=== PATIENT | male | born 1995 | race Caucasian/White ===

== ENCOUNTER 2018-10-28 10:08 | Emergency (ER) | payer OTHER, SELFPAY ==
[2018-10-28 10:39] VITALS: BP 127/81; PULSE 66; RESP 18; TEMP 36.4; O2SAT 100
[2018-10-28 11:45] VITALS: PULSE 70
--- NOTE | 2018-10-28 12:20 | DI.RAD.S_ITS ---
PROCEDURE: XR CHEST 2V INDICATIONS: L side chest and side sharp pain TECHNIQUE: 2 views of the chest were acquired. COMPARISON: None. FINDINGS: Surgical changes and devices: None. Lungs and pleura: Lungs are clear. No pleural effusions or pneumothorax. Mediastinum: Mediastinal contours are normal. Heart size is normal. Bones and chest wall: No suspicious bony abnormalities. Soft tissues appear unremarkable. IMPRESSION: Negative chest. No acute cardiopulmonary process is evident. Dictated by: Cl Arenas M.D. on 10/28/2018 at 11:46 Approved by: Cl Arenas M.D. on 10/28/2018 at 11:50
--- NOTE | 2018-10-28 13:16 | ED.EXTPRO ---
HPI - Extremity Problem <LISSA Gibson - Last Filed: 10/28/18 23:21> General Chief complaint: Extremity Problem,Nontraumatic Stated complaint: sharp left side pain,arm going numb Time Seen by Provider: 10/28/18 12:09 Source: patient Mode of arrival: ambulatory Limitations: no limitations History of Present Illness HPI Narrative: This is a 23-year-old active [employer] member, smoker, who presents with left chest and side sharp pain which started at 4:30 a.m. this morning when he was getting off for work which worsens with movement and touch. He also reports discomfort on left arm radiating to elbow and down to his left hand 3 through 5 fingers some tingling and numbness. 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 He denies breathing trouble, dizziness, weakness to his extremities. He reports had some nausea with this chest discomfort this morning. He was unable to seen by [employer] medical personnel today and was referred to be evaluated in the ED. He rates 1/10 pain at this time. He reports right dominant hand. Related Data Home Medications Medication Instructions Recorded Confirmed No Known Home Medications 10/28/18 10/28/18 Allergies Allergy/AdvReac Type Severity Reaction Status Date / Time No Known Drug Allergies Allergy Verified 10/28/18 10:42 Review of Systems <LISSA Gibson - Last Filed: 10/28/18 23:21> Review of Systems General: Denies fever, chills, fatigue, malaise, sweats. HEENT: Denies sinus pain, ear pain, sore throat, difficulty swallowing, dizziness. Respiratory: Denies dyspnea, cough, wheezing, hemoptysis, sputum. Cardiovascular: See HPI Gastrointestinal: Denies nausea, vomiting, abdominal pain, diarrhea, constipation, melena. : Denies dysuria, frequency, incontinence, hematuria, urinary retention. Musculoskeletal: See HPI Skin: Denies rash, skin lesions, or other. Neurologic: Reports tingling and numbness to his last 3 fingers on left hand. Denies weakness, headache, numbness, change in speech, confusion, seizures, incoordination. Psychiatric: No concerning psychosocial issues. 12-point review of systems is negative except for those stated above. PFSH <LISSA Gibson - Last Filed: 10/28/18 23:21> Medical History No significant past medical history (Chronic) Surgical History No pertinent past surgical history (Chronic) Social History Smoking Status: Current every day smoker Social History Smoking Status: Current every day smoker Exam <LISSA Gibson - Last Filed: 10/28/18 23:21> Narrative Exam Narrative: GEN: Alert, oriented x 3, well appearing and nourished, and in no acute distress. Head: Normal cephalic, atraumatic. No scalp or temporal tenderness, palpable mass or rash. EYES: Pupils are equal, round, and reactive to light and accommodation. Extraocular muscles are intact bilaterally. There is no subconjunctival hemorrhage, exudate and sclera non-icteric. ENT: Hearing grossly intact. Nose without bleeding, purulent discharge. Mucous membrane moist, no mucosal lesion. Throat without erythema, tonsillar hypertrophy or exudate. Uvula in midline, airway patent. Neck: Trachea in midline. No JVD, non-tender without lymphadenopathy. No masses or thyroid megaly. Supple, non-tender and no meningeal signs. CARDIAC: Normal regular rate and rhythm without murmurs, gallops, or rubs. No chest wall tenderness. No peripheral edema, cyanosis or pallor. Capillary refill is less than 2 seconds. RESPIRATORY: Lungs are cleat to auscultate bilaterally. No cough, wheezes, rales, or rhonchi. No stridor, respiratory distress, increase work of breathing, or accessary muscle used. ABD: Abdomen soft, nontender and non-distended. No guarding or rebound tenderness to palpate. Bowel sounds are normal in all 4 quadrants. There is no palpable masses or organomegaly. EXT: Full painless ROM of all extremities with no loss of sensation, strength, effusion or edema. Negative for Tinnel and Phalen signs in L hand. Radial and ulnar pulses intact in L hand. SKIN: Warm, dry, normal color for patient. No erythema, lesions or rash over visible areas. BACK: Nontender without deformity or crepitance. No flank tenderness. NEUROLOGICAL: Alert and oriented to place, time and person. Sensation and motor function intact bilaterally. No facial droops, dysphasia. PSYCHIATRIC: Good judgement and reason, without hallucinations, abnormal affect or abnormal behaviors during the examination. Patient is not suicidal. Initial Vital Signs Initial Vital Signs: Vital Signs Temperature 97.6 F 10/28/18 10:39 Pulse Rate 66 10/28/18 10:39 Respiratory Rate 18 10/28/18 10:39 Blood Pressure 127/81 10/28/18 10:39 Pulse Oximetry 100 10/28/18 10:39 <Kim Escobar DO - Last Filed: 10/29/18 08:15> Initial Vital Signs Initial Vital Signs: Vital Signs Temperature 97.6 F 10/28/18 10:39 Pulse Rate 66 10/28/18 10:39 Respiratory Rate 18 10/28/18 10:39 Blood Pressure 127/81 10/28/18 10:39 Pulse Oximetry 100 10/28/18 10:39 Course <LISSA Gibson - Last Filed: 10/28/18 23:21> Orders Ordered: ED Orders 10/28/18 12:20 XR chest 2V Stat EKG-12 Lead Stat Vital Signs - 8 hr 10/28/18 10:39 10/28/18 11:45 Temperature 97.6 F Pulse Rate 66 Pulse Rate [Left Radial] 70 Respiratory Rate 18 Blood Pressure 127/81 Pulse Oximetry 100 <Kim Escobar DO - Last Filed: 10/29/18 08:15> Orders Ordered: ED Orders 10/28/18 12:20 XR chest 2V Stat EKG-12 Lead Stat Vital Signs - 8 hr 10/28/18 10:39 10/28/18 11:45 Temperature 97.6 F Pulse Rate 66 Pulse Rate [Left Radial] 70 Respiratory Rate 18 Blood Pressure 127/81 Pulse Oximetry 100 MDM - Extremity (Nontraumatic) <LISSA Gibson Last Filed: 10/28/18 23:21> Differential Diagnosis Likely other (chostochondritis, pneumothorax, pneumonia, [place]) Medical Records Attestation: I reviewed the patient's medical records. Imaging Data Chest x-ray: Radiologist's impression: [place] [id number] XRay Report Signed Patient: Isaac Merritt EMR#: [id number] : 1995Acct:[id number] Age/Sex: MDate of Service: 10/28/18 Loc: ED Accession Number: [id number] Procedure: XR chest 2V Ordering Provider: Ronnie Rg PROCEDURE: XR CHEST 2V INDICATIONS: L side chest and side sharp pain TECHNIQUE: 2 views of the chest were acquired. COMPARISON: None. FINDINGS: Surgical changes and devices: None. Lungs and pleura: Lungs are clear. No pleural effusions or pneumothorax. Mediastinum: Mediastinal contours are normal. Heart size is normal. Bones and chest wall: No suspicious bony abnormalities. Soft tissues appear unremarkable. IMPRESSION: Negative chest. No acute cardiopulmonary process is evident. Dictated by: Cl Arenas M.D. on 10/28/2018 at 11:46 Approved by: Cl Arenas M.D. on 10/28/2018 at 11:50 ECG Data Attestation EKG: I personally reviewed and interpreted this ECG as follows: Prior ECG tracings: not available for review Interpretation: Sinus rhythm rate at 65, normal axis, no ST elevation or depression. MDM Narrative Medical decision making narrative: This is a 23-year-old male who presents to ED with left chest and side sharp pain which is reproducible by palpation and left arm discomfort which is radiating to elbow and his left last 3 fingers with tingling and numbness. Patient does not endorse any other associated symptoms such as breathing difficulty and dizziness. Patient is a smoker but does not use other drugs. Patient reports his pain is 1/10 at this time and declines any medications. EKG was done it shows as sinus rhythm. Chest x-ray with negative acute findings. Patient advised to take pqwi-zbz-dbmellc ibuprofen/Motrin as needed for pain and for possible inflammation for his chest and left arm discomfort. Negative exam for Tinel/Phalen tests for carpal tunnel symptoms. Nikita wrap has provided around his mid arm to prevent repetition of left arm movement and limit using the left hand excessively. Discussed return precautions with patient and patient advised to follow up with his medical sick call. Patient agrees with treatment plan and no further questions expressed the this time. <Kim Escobar, DO - Last Filed: 10/29/18 08:15> ECG Data Attestation EKG: I personally reviewed and interpreted this ECG as follows: Prior ECG tracings: not available for review Interpretation: Normal sinus rhythm rate 65 p.r. interval [address] changes no T-wave inversions Discharge Plan Departure Patient Disposition: Home Clinical Impression: Costochondritis, Arm pain, left Discharge Date/Time: 10/28/18 13:47 Interventions: ED Discharge Assessment Last Done: 10/28/18 13:47 Instructions: DI for Costochondritis, DI for Arm Pain Activity Restrictions/Additional Instructions: You have been diagnosed with [ costochondritis and L arm pain which probably caused from ulnar nerve irritation. Plese use nikita wrap that was provided today to prevent excessive movement on left arm. The EKG and chest x-ray was unremarkable]. What to do: *Take your medications as directed. Please take hdxz-uct-qilznup ibuprofen or Motrin as needed for discomfort which will also decrease inflammation on your chest wall and you're left arm. Please take it with food or snack when you take this medication *Follow up with your primary care provider in 2-3 days, call for an appointment. Let them know you were seen in the ED and that we asked you to be seen in follow up. *Return to ED if you have any new, worsening, or concerning symptoms, such as [severe chest pain, difficulty breathing, dizziness, nausea or vomiting, weakness to her left arm and any acute concerns, ]. Prescriptions: No Action No Known Home Medications RF: 0 Referrals: [facility] [Outside] <Kim Escobar, DO - Last Filed: 10/29/18 08:15> Cosign ED Attending Valerie Attestation: I was immediately available in the department for consultation. Documentation has been reviewed. I agree with assessment and plan.
--- NOTE | 2018-10-28 13:20 | ED_ITS ---
HPI - Extremity Problem <LISSA Gibson - Last Filed: 10/28/18 23:21> General Chief complaint: Extremity Problem,Nontraumatic Stated complaint: sharp left side pain,arm going numb Time Seen by Provider: 10/28/18 12:09 Source: patient Mode of arrival: ambulatory Limitations: no limitations History of Present Illness HPI Narrative: This is a 23-year-old active [employer] member, smoker, who presents with left chest and side sharp pain which started at 4:30 a.m. this morning when he was getting off for work which worsens with movement and touch. He also reports discomfort on left arm radiating to elbow and down to his left hand 3 through 5 fingers some tingling and numbness. 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 He denies breathing trouble, d izziness, weakness to his extremities. He reports had some nausea with this chest discomfort this morning. He was unable to seen by [employer] medical personnel today and was referred to be evaluated in the ED. He rates 1/10 pain at this time. He reports right dominant hand. Related Data Home Medications Medication Instructions Recorded Confirmed No Known Home Medications 10/28/18 10/28/18 Allergies Allergy/AdvReac Type Severity Reaction Status Date / Time No Known Drug Allergies Allergy Verified 10/28/18 10:42 Review of Systems <LISSA Gibson - Last Filed: 10/28/18 23:21> Review of Systems General: Denies fever, chills, fatigue, malaise, sweats. HEENT: Denies sinus pain, ear pain, sore throat, difficulty swallowing, dizziness. Respiratory: Denies dyspnea, cough, wheezing, hemoptysis, sputum. Cardiovascular: See HPI Gastrointestinal: Denies nausea, vomiting, abdominal pain, diarrhea, constipation, melena. : Denies dysuria, frequency, incontinence, hematuria, urinary retention. Musculoskeletal: See HPI Skin: Denies rash, skin lesions, or other. Neurologic: Reports tingling and numbness to his last 3 fingers on left hand. Denies weakness, headache, numbness, change in speech, confusion, seizures, incoordination. Psychiatric: No concerning psychosocial issues. 12-point review of systems is negative except for those stated above. PFSH <LISSA Gibson - Last Filed: 10/28/18 23:21> Medical History No significant past medical history (Chronic) Surgical History No pertinent past surgical history (Chronic) Social History Smoking Status: Current every day smoker Social History Smoking Status: Current every day smoker Exam <LISSA Gibson - Last Filed: 10/28/18 23:21> Narrative Exam Narrative: GEN: Alert, oriented x 3, well appearing and nourished, and in no acute distress. Head: Normal cephalic, atraumatic. No scalp or temporal tenderness, palpable mass or rash. EYES: Pupils are equal, round, and reactive to light and accommodation. Extraocular muscles are intact bilaterally. There is no subconjunctival hemorrhage, exudate and sclera non-icteric. ENT: Hearing grossly intact. Nose without bleeding, purulent discharge. Mucous membrane moist, no mucosal lesion. Throat without erythema, tonsillar hypertrophy or exudate. Uvula in midline, airway patent. Neck: Trachea in midline. No JVD, non-tender without lymphadenopathy. No masses or thyroid megaly. Supple, non-tender and no meningeal signs. CARDIAC: Normal regular rate and rhythm without murmurs, gallops, or rubs. No chest wall tenderness. No peripheral edema, cyanosis or pallor. Capillary refill is less than 2 seconds. RESPIRATORY: Lungs are cleat to auscultate bilaterally. No cough, wheezes, rales, or rhonchi. No stridor, respiratory distress, increase work of breathing, or accessary muscle used. ABD: Abdomen soft, nontender and non-distended. No guarding or rebound tenderness to palpate. Bowel sounds are normal in all 4 quadrants. There is no palpable masses or organomegaly. EXT: Full painless ROM of all extremities with no loss of sensation, strength, effusion or edema. Negative for Tinnel and Phalen signs in L hand. Radial and ulnar pulses intact in L hand. SKIN: Warm, dry, normal color for patient. No erythema, lesions or rash over visible areas. BACK: Nontender without deformity or crepitance. No flank tenderness. NEUROLOGICAL: Alert and oriented to place, time and person. Sensation and motor function intact bilaterally. No facial droops, dysphasia. PSYCHIATRIC: Good judgement and reason, without hallucinations, abnormal affect or abnormal behaviors during the examination. Patient is not suicidal. Initial Vital Signs Initial Vital Signs: Vital Signs Temperature 97.6 F 10/28/18 10:39 Pulse Rate 66 10/28/18 10:39 Respiratory Rate 18 10/28/18 10:39 Blood Pressure 127/81 10/28/18 10:39 Pulse Oximetry 100 10/28/18 10:39 <Kim Escobar DO - Last Filed: 10/29/18 08:15> Initial Vital Signs Initial Vital Signs: Vital Signs Temperature 97.6 F 10/28/18 10:39 Pulse Rate 66 10/28/18 10:39 Respiratory Rate 18 10/28/18 10:39 Blood Pressure 127/81 10/28/18 10:39 Pulse Oximetry 100 10/28/18 10:39 Course <LISSA Gibson - Last Filed: 10/28/18 23:21> Orders Ordered: ED Orders 10/28/18 12:20 XR chest 2V Stat EKG-12 Lead Stat Vital Signs - 8 hr 10/28/18 10:39 10/28/18 11:45 Temperature 97.6 F Pulse Rate 66 Pulse Rate [Left Radial] 70 Respiratory Rate 18 Blood Pressure 127/81 Pulse Oximetry 100 <Kim Escobar DO - Last Filed: 10/29/18 08:15> Orders Ordered: ED Orders 10/28/18 12:20 XR chest 2V Stat EKG-12 Lead Stat Vital Signs - 8 hr 10/28/18 10:39 10/28/18 11:45 Temperature 97.6 F Pulse Rate 66 Pulse Rate [Left Radial] 70 Respiratory Rate 18 Blood Pressure 127/81 Pulse Oximetry 100 MDM - Extremity (Nontraumatic) <LISSA Gibson - Last Filed: 10/28/18 23:21> Differential Diagnosis Likely other (chostochondritis, pneumothorax, pneumonia, [place]) Medical Records Attestation: I reviewed the patient's medical records. Imaging Data Chest x-ray: Radiologist's impression: [address] [place] [address] XRay Report Signed Patient: Isaac Merritt EMR#: [id number] : 1995Acct:[id number] Age/Sex: 23 / MDate of Service: 10/28/18 Loc: ED Accession Number: [id number] Procedure: XR chest 2V Ordering Provider: Ronnie Rg PROCEDURE: XR CHEST 2V INDICATIONS: L side chest and side sharp pain TECHNIQUE: 2 views of the chest were acquired. COMPARISON: None. FINDINGS: Surgical changes and devices: None. Lungs and pleura: Lungs are clear. No pleural effusions or pneumothorax. Mediastinum: Mediastinal contours are normal. Heart size is normal. Bones and chest wall: No suspicious bony abnormalities. Soft tissues appear unremarkable. IMPRESSION: Negative chest. No acute cardiopulmonary process is evident. Dictated by: Cl Arenas M.D. on 10/28/2018 at 11:46 Approved by: Cl Arenas M.D. on 10/28/2018 at 11:50 ECG Data Attestation EKG: I personally reviewed and interpreted this ECG as follows: Prior ECG tracings: not available for review Interpretation: Sinus rhythm rate at 65, normal axis, no ST elevation or depression. MDM Narrative Medical decision making narrative: This is a 23-year-old male who presents to ED with left chest and side sharp pain which is reproducible by palpation and left arm discomfort which is radiating to elbow and his left last 3 fingers with tingling and numbness. Patient does not endorse any other associated symptoms such as breathing difficulty and dizziness. Patient is a smoker but does not use other drugs. Patient reports his pain is 1/10 at this time and declines any medications. EKG was done it shows as sinus rhythm. Chest x-ray with negative acute findings. Patient advised to take lktr-sek-arvoqrq ibuprofen/Motrin as needed for pain and for possible inflammation for his chest and left arm discomfort. Negative exam for Tinel/Phalen tests for carpal tunnel symptoms. Nikita wrap has provided around his mid arm to prevent repetition of left arm movement and limit using the left hand excessively. Discussed return precautions with patient and patient advised to follow up with his medical sick call. Patient agrees with treatment plan and no further questions expressed the this time. <Kim Escobar DO - Last Filed: 10/29/18 08:15> ECG Data Attestation EKG: I personally reviewed and interpreted this ECG as follows: Prior ECG tracings: not available for review Interpretation: Normal sinus rhythm rate 65 p.r. interval [address] changes no T-wave inversions Discharge Plan Departure Patient Disposition: Home Clinical Impression: Costochondritis, Arm pain, left Discharge Date/Time: 10/28/18 13:47 Interventions: ED Discharge Assessment Last Done: 10/28/18 13:47 Instructions: DI for Costochondritis, DI for Arm Pain Activity Restrictions/Additional Instructions: You have been diagnosed with [ costochondritis and L arm pain which probably caused from ulnar nerve irritation. Plese use nikita wrap that was provided today to prevent excessive movement on left arm. The EKG and chest x-ray was unremarkable]. What to do: *Take your medications as directed. Please take qlbu-woc-sdcvfen ibuprofen or Motrin as needed for discomfort which will also decrease inflammation on your chest wall and you're left arm. Please take it with food or snack when you take this medication *Follow up with your primary care provider in 2-3 days, call for an appointment. Let them know you were seen in the ED and that we asked you to be seen in follow up. *Return to ED if you have any new, worsening, or concerning symptoms, such as [severe chest pain, difficulty breathing, dizziness, nausea or vomiting, weakness to her left arm and any acute concerns, ]. Prescriptions: No Action No Known Home Medications RF: 0 Referrals: [facility] [Outside] <Kim Escobar DO - Last Filed: 10/29/18 08:15> Cosign ED Attending Bertramature Attestation: I was immediately available in the department for consultation. Documentation has been reviewed. I agree with assessment and plan.
[2018-10-28 13:38] VITALS: BP 124/75; PULSE 64; O2SAT 100
== END 2018-10-28 13:47 | disposition home or self-care (01) ==
PROVIDERS: Emergency Provider Nurse Practitioner Family
DX: M94.0 Chondrocostal junction syndrome [Tietze] (principal); M79.602 Pain in left arm
CPT/HCPCS: 71046; 93005; 99282; 99284